=== PATIENT | female | born 1950 | race Caucasian/White ===

== ENCOUNTER 2018-12-07 10:57 | Emergency (ER) | payer OTHER ==
[~2018-12-07] VITALS: Ht 162.6 cm; Wt 122.5 kg
--- OUTSIDE RECORDS SUMMARY | 2018-12-07 11:00 | XMS REPORT ---
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 Allergies, Adverse Reactions, Alerts Allergy Name Allergy Type Status Severity Reaction(s) Onset Date Inactive Date Treating Clinician Comments tetanus toxoid, adsorbed DA Active U 2018-04-20 00:00:00 adhesive tape DA Active [place] 2018-04-20 00:00:00 tetanus and diphtheria toxoids DA Active U 2018-04-20 00:00:00 gabapentin DA Active U 2018-04-20 00:00:00 gabapentin DA Active U 2018-04-19 00:00:00 tetanus toxoid, adsorbed DA Active U 2016-11-11 00:00:00 adhesive tape DA Active [place] 2016-11-11 00:00:00 tetanus and diphtheria toxoids DA Active U 2016-11-11 00:00:00 Medications This patient has no known medications.
[2018-12-07] MEDS ORDERED: SODIUM CHLORIDE 0.9% 1000ML 1,000 ML IV STA (11:24)
[2018-12-07] MEDS ORDERED: KETOROLAC TROMETHAMINE 30 MG/ML VIAL IV STA (11:24)
[2018-12-07] MEDS ORDERED: DIPHENHYDRAMINE HCL INJ 50 MG/ML VIAL IV ONE (11:30)
[2018-12-07] MEDS ORDERED: METOCLOPRAMIDE HCL 10 MG/2ML VIAL IV ONE (11:30)
[2018-12-07 11:54] LABS: BASOPHILS % 0.4 % (0.0-1.0); EOSINOPHILS # (AUTO) 0.1 (0.0-0.4); EOSINOPHILS % 1.9 % (0.0-6.0); HEMATOCRIT 42.6 % (34.2-44.1); HEMOGLOBIN 13.6 g/dL (12.0-16.0); LYMPHOCYTES # (AUTO) 1.7 (1.0-3.2); LYMPHOCYTES % 23.9 % (18.0-39.1); MEAN CORPUSCULAR HEMOGLOBIN 30.1 pg (28-32); MEAN CORPUSCULAR HGB CONC 31.9 g/dL (31-35); MEAN CORPUSCULAR VOLUME 94.2 fL (81-99); MONOCYTES # (AUTO) 0.6 (0.2-0.8); MONOCYTES % 8.8 % (4.4-11.3); NEUTROPHILS # (AUTO) 4.6 (2.1-6.9); NEUTROPHILS % 64.4 % (38.7-80.0); PLATELET COUNT 155 x10e3/uL (140-360); RED BLOOD COUNT 4.52 x10e6/uL (3.6-5.1); RED CELL DISTRIBUTION WIDTH 14.1 % (11.7-14.4)
[2018-12-07 12:05] LABS: INR 0.82; PROTHROMBIN TIME 11.8 seconds (11.9-14.5)
[2018-12-07 12:06] LABS: PARTIAL THROMBOPLASTIN TIME 29.7 seconds (23.8-35.5)
[2018-12-07 12:14] LABS: ALANINE AMINOTRANSFERASE 43 IU/L (0-55); ALBUMIN 3.6 g/dL (3.5-5.0); ALBUMIN/GLOBULIN RATIO 0.9 (0.8-2.0); ALKALINE PHOSPHATASE 53 IU/L (40-150); ANION GAP 12.8 mmol/L (8-16); BLOOD UREA NITROGEN 26 mg/dL (7-26); BUN/CREATININE RATIO 26 (6-25); CALCIUM 10.3 mg/dL (8.4-10.2); CARBON DIOXIDE 27 mmol/L (22-29); CHLORIDE 102 mmol/L (98-107); CREATINE KINASE 44 IU/L (29-168); CREATININE, SERUM 0.99 mg/dL (0.57-1.11); EST GLOMERULAR FILTRATION RATE 56 ML/MIN (60-); GLUCOSE 117 mg/dL (74-118); POTASSIUM 3.8 mmol/L (3.5-5.1); SODIUM 138 mmol/L (136-145)
--- NOTE | 2018-12-07 12:30 | Diagnostic Imaging Report ---
History: Dizziness, headaches for 2 weeks Comparison studies: None Technique: Axial images were obtained from the skull base to the vertex. Coronal and sagittal reconstructions obtained from the axial data. Dose modulation, iterative reconstruction, and/or weight based adjustment of the mA/kV was utilized to reduce the radiation dose to as low as reasonably achievable. Findings: Scalp/skull: No abnormalities. No fractures, blastic or lytic lesions. Extra-axial spaces: No masses. No fluid collections. Brain sulci: Appropriate for age. Ventricles: Normal in size and configuration. No hydrocephalus. Parenchyma: No abnormal densities. No masses, hemorrhage, acute or chronic cortical vascular insults. Sellar/suprasellar region: No abnormalities Craniocervical junction: Patent foramen magnum. No Chiari one malformation. Thinning of the left eye lens, could related to previous intervention. IMPRESSION: No abnormalities . Signed by: DR Ronald Redman M.D. on 12/07/2018 12:27 PM
[2018-12-07 12:47] LABS: BILIRUBIN,URINE NEGATIVE (NEGATIVE); CLARITY,URINE CLEAR (CLEAR); COLOR,URINE YELLOW (YELLOW); KETONES,URINE NEGATIVE (NEGATIVE); LEUKOCYTE ESTERASE ,URINE NEGATIVE (NEGATIVE); NITRITE,URINE NEGATIVE (NEGATIVE); PROTEIN,URINE DIPSTICK 1+ (NEGATIVE); URINE UROBILINOGEN 0.2 mg/dL (0.2 - 1)
[2018-12-07 12:55] LABS: BACTERIA,URINE FEW /HPF; EPITHELIAL CELLS,URINE RARE /LPF; WBC,URINE (MAN) 0-5 /HPF (0-5)
--- NOTE | 2018-12-07 13:17 | Diagnostic Imaging Report ---
EXAMINATION: CHEST SINGLE (PORTABLE) INDICATION: High blood pressure, headache. COMPARISON: None FINDINGS: Somewhat limited examination secondary to portable technique and soft tissue attenuation. TUBES and LINES: None. LUNGS: Lungs are well inflated. There are patchy opacities of the bilateral lung bases, right greater than left. There is central vascular congestion without pulmonary edema. PLEURA: No pleural effusion or pneumothorax. HEART AND MEDIASTINUM: Cardiac size is mildly enlarged. There are atherosclerotic calcifications within the aorta. BONES AND SOFT TISSUES: No acute osseous abnormality. UPPER ABDOMEN: No free air under the diaphragm. IMPRESSION: Patchy opacities in the lung bases, right greater than left, which may reflect atelectasis or pneumonia in the appropriate clinical setting. Given focal appearance, recommend follow-up chest radiograph in 6-8 weeks to assess for resolution. Signed by: Dr. Andreas Gamez MD on 12/07/2018 1:14 PM
[2018-12-07] MEDS ORDERED: MORPHINE SULFATE INJ 4 MG/ML INJ 1ML IV PRN (13:30)
[2018-12-07] MEDS ORDERED: HALOPERIDOL LACTATE 5 MG/ML VIAL IV NR (14:00)
[2018-12-07 14:59] VITALS: BP 161/90
== END 2018-12-07 15:10 | disposition home or self-care (01) ==
LOC: ER 10:57
DX: G44.89 Other headache syndrome (principal); I10 Essential (primary) hypertension; M10.9 Gout, unspecified; M13.88 Other specified arthritis, other site
CPT/HCPCS: 36415; 70450; 71045; 80053; 81001; 82550; 82553; 84484; 85025; 85610; 85730; 87086; 93005; 99284; J1200; J1630; J1885; J2270; J2765; J7030